=== PATIENT | female | born 2000 | race Two or more races ===

== ENCOUNTER 2019-01-19 15:32 | Emergency (ER) | payer OTHER ==
[~2019-01-19] VITALS: Ht 162.6 cm; Wt 67.6 kg
[2019-01-19] MEDS ORDERED: NAPR220C23 PO (15:40)
[2019-01-19 18:41] LABS: BASO % 0.3 % (0.0-1.0); EOS # 0.1 10^3/uL (0.0-0.5); EOS % 0.5 % (0.0-3.0); HEMATOCRIT 36.9 % (36.0-47.0); HEMOGLOBIN 12.2 g/dl (12.0-15.5); LYMPH # 1.5 10^3/uL (1.5-5.0); LYMPH % 11.4 % (24.0-44.0); MEAN CORPUSCULAR HEMOGLOBIN 29.3 pg (27.0-33.0); MEAN CORPUSCULAR HGB CONC 33.1 g/dl (32.0-36.5); MEAN CORPUSCULAR VOLUME 88.5 fl (80.0-96.0); MONO # 0.9 10^3/uL (0.0-0.8); MONO % 7.2 % (0.0-5.0); NEUTROPHILS # 10.4 10^3/uL (1.5-8.5); NEUTROPHILS % 80.2 % (36.0-66.0); PLATELET COUNT, AUTOMATED 186 10^3/uL (150-450); RED BLOOD COUNT 4.17 10^6/uL (4.00-5.40)
[2019-01-19 18:58] LABS: RHEUMATOID FACTOR QUANT < 10.0 IU/ML (<15.0)
--- NOTE | 2019-01-19 19:04 | REP ---
PELVIS AND BILATERAL HIPS: AP view of the pelvis and AP and frog leg views of bilateral hips are performed. No acute fracture, dislocation or intrinsic bone disease is seen. Joint spaces are symmetrical and unremarkable. IMPRESSION: Negative pelvis and bilateral hips. Electronically Signed by Christian Bazzi MD 01/21/2019 09:39 A
[2019-01-19] MEDS ORDERED: MEDR4PAK PO (19:30)
[2019-01-19 19:32] LABS: BLOOD UREA NITROGEN 13 MG/DL (7-18); CARBON DIOXIDE LEVEL 24 MEQ/L (21-32); CHLORIDE LEVEL 110 MEQ/L (98-107); CREATININE FOR GFR 0.57 MG/DL (0.55-1.30); GLUCOSE, FASTING 95 MG/DL (70-100); POTASSIUM SERUM 3.8 MEQ/L (3.5-5.1); SODIUM LEVEL 140 MEQ/L (136-145)
[2019-01-19 20:03] VITALS: BP 118/68
[2019-01-19 20:04] LABS: ERYTHROCYTE SEDIMENTATION RATE 14 mm/hr (0-20)
[2019-01-21 14:07] LABS: ANTINUCLEAR ANTIBODIES DIRECT Negative (Negative)
== END 2019-01-19 20:00 | disposition home or self-care (01) ==
LOC: M ED 15:32
DX: J06.9 Acute upper respiratory infection, unspecified (principal); B34.9 Viral infection, unspecified; M25.551 Pain in right hip; M25.552 Pain in left hip